=== PATIENT | female | born 1950 | race Caucasian/White ===

== ENCOUNTER → 2019-10-27 | Outpatient (CLI) | payer MEDICARE, OTHER ==
--- NOTE | 2019-10-27 15:53 | US ---
EXAMINATION TYPE: US pelvis complete transvag DATE OF EXAM: 10/27/2019 COMPARISON: NONE CLINICAL HISTORY: 68-year-old female R10.2 Pelvic Pain. Pelvic pain during intercourse x 1-2 months TECHNIQUE: Transabdominal sonographic images of the pelvis were acquired. Transvaginal scanning was medically necessary to better assess the anatomy. Date of LMP: post menopausal FINDINGS: EXAM MEASUREMENTS: Uterus: 9.1 x 2.7 x 4.5 cm Endometrial Stripe: 0.4 cm Right Ovary: non-visualized Left Ovary: 2.1 x 1.8 x 1.6 cm 1. Uterus: Nabothian cysts 2. Endometrium: Small cystic change along the endometrium. 3. Right Ovary: Obscured by overlying bowel gas 4. Left Ovary: A 6 mm cyst within a questionable clinical significance. 5. Bilateral Adnexa: wnl 6. Posterior cul-de-sac: wnl Heating Repair Technician notes: Small amount of fluid seen within the endocervical canal. IMPRESSION: 1. Small cysts along the endometrium could reflect endometrial hyperplasia. Overall endometrial thick ness is normal at 4 mm. Consider follow-up in 3 months to reassess. 2. Small amount of fluid within the endocervical canal. Consider assessment with physical exam.
== END | disposition home or self-care (01) ==
LOC: RADUSWWP 12:37
PROVIDERS: ATTEND Family Medicine
DX: N85.8 Other specified noninflammatory disorders of uterus (principal)
CPT/HCPCS: 76830; 76856

== ENCOUNTER → 2019-12-13 | Outpatient (CLI) | payer MEDICARE, OTHER ==
--- NOTE | 2019-12-16 11:48 | MM ---
Reason for exam: screening (asymptomatic). Last mammogram was performed 2 years and 8 months ago. History: Patient is postmenopausal and had first child at age 36. Physical Findings: A clinical breast exam by your physician is recommended on an annual basis and results should be correlated with mammographic findings. MG 3D Screening Mammo W/Cad Bilateral CC and MLO view(s) were taken. Prior study comparison: April 21, 2017, mammogram, performed at [facility]. September 20, 2010, mammogram, performed at [facility]. The breast tissue is heterogeneously dense. This may lower the sensitivity of mammography. No significant changes when compared with prior studies. ASSESSMENT: Benign, BI-RAD 2 RECOMMENDATION: Routine screening mammogram of both breasts in 1 year.
== END | disposition home or self-care (01) ==
LOC: RADMAMWWP 10:52
PROVIDERS: ATTEND Obstetrics & Gynecology
DX: Z12.31 Encounter for screening mammogram for malignant neoplasm of breast (principal)
CPT/HCPCS: 77063; 77067

== ENCOUNTER → 2019-12-16 | Outpatient (CLI) | payer MEDICARE, OTHER ==
--- NOTE | 2019-12-16 13:46 | BD ---
EXAMINATION TYPE: Axial Bone Density DATE OF EXAM: 12/16/2019 COMPARISON: NONE CLINICAL HISTORY: 69 YR OLD FEMALE .......ICD-10 CODE: M89.9 BONE DEN DISORDER, Z13.820 OSTEOPOROSI S SCREENING Height: 60 Weight: 170 FRAX RISK QUESTIONS: Glucocorticoids (More than 3mos): YES (Ex: prednisone, prednisolone, methylprednisolone, dexamethasone, and hydrocortisone). RISK FACTORS HISTORY OF: History of Wrist Fracture: LT WRIST, LT ELBOW AND RT FOOT FXs AN ADULT Family History of Osteoporosis: YES, MOTHER...NO HIP FX Diet low in dairy products/other sources of calcium: YES Postmenopausal woman: YES, AT AGE 54 Hyperparathyroidism: NO Adrenal Insufficiency: NO MEDICATIONS: Prednisone or other steroids: YES, FOR ASTHMA AND BRONCHITIS Additional Medications: NOTHING TO NOTE HERE Additional History: ASTHMA EXAM MEASUREMENTS: Bone mineral densitometry was performed using the [employer] System. Bone mineral density as measured about the Lumbar spine is: ----- L1-L4(G/cm2): 1.020 T Score Values are as follows: ----- L1: -2.2 ----- L2: -1.8 ----- L3: -0.7 ----- L4: -0.9 ----- L1-L4: -1.3 Bone mineral density FIRST BONE DENSITY STUDY AT [facility] Bone mineral density about the R hip (g/cm2): 0.895 Bone mineral density about the L hip (g/cm2): 0.873 T Score values are as follows: -----R Neck: -1.5 -----L Neck: -1.6 -----R Total: -0.9 -----L Total: -1.1 Bone mineral density FIRST BONE DENSITY STUDY AT [facility] FRAX%s: THERE IS A 23.3% CHANCE FOR A MAJOR OSTEOPOROTIC FX AND A 3.5% FOR HIP......PROBABILITY FOR FX IN 10 YR TIME IMPRESSION: Osteopenia (T Score between -2.5 and -1). There is slightly increased risk of fracture and the patient may be considered for treatment. Re-Screen 2-5 years. NOTE: T-SCORE=SD OF THE YOUNG ADULT MEAN.
== END | disposition home or self-care (01) ==
LOC: RADBDWWP 09:21
PROVIDERS: ATTEND Obstetrics & Gynecology
DX: Z13.820 Encounter for screening for osteoporosis (principal); M85.80 Other specified disorders of bone density and structure, unspecified site; Z78.0 Asymptomatic menopausal state
CPT/HCPCS: 77080

== ENCOUNTER → 2020-01-19 | Outpatient (CLI) | payer MEDICARE, OTHER ==
[2020-01-19 08:46] LABS: Basophils % (A) 1 %; Eosinophils # (A) 0.1 k/uL (0-0.7); Eosinophils % (A) 3 %; HCT 46.3 % (34.0-46.0); HGB 15.6 gm/dL (11.4-16.0); Lymphocytes # (A) 1.6 k/uL (1.0-4.8); Lymphocytes % (A) 36 %; MCH 32.5 pg (25.0-35.0); MCHC 33.6 g/dL (31.0-37.0); MCV 96.7 fL (80.0-100.0); Mean Platelet Volume 7.2; Monocytes # (A) 0.3 k/uL (0-1.0); Monocytes % (A) 7 %; Neutrophils # (A) 2.3 k/uL (1.3-7.7); Neutrophils % (A) 52 %; Platelet Count 189 k/uL (150-450); RBC 4.79 m/uL (3.80-5.40); RDW 12.6 % (11.5-15.5); WBC 4.4 k/uL (3.8-10.6)
[2020-01-19 08:53] LABS: African American GFR (CKD) >90 (>60 ml/min/1.73 sqM); Anion Gap 2 mmol/L; Blood Urea Nitrogen 11 mg/dL (7-17); Calcium 8.9 mg/dL (8.4-10.2); Carbon Dioxide 30 mmol/L (22-30); Chloride 107 mmol/L (98-107); Glucose 96 mg/dL (74-99); Non-African American GFR(CKD) 78 (>60 ml/min/1.73 sqM); Potassium 4.5 mmol/L (3.5-5.1); Sodium 139 mmol/L (137-145)
== END | disposition home or self-care (01) ==
LOC: LABPAT 07:33
PROVIDERS: ATTEND Obstetrics & Gynecology
DX: Z01.818 Encounter for other preprocedural examination (principal)
CPT/HCPCS: 36415; 80048; 85025

== ENCOUNTER 2020-01-28 05:41 | Observation (INO) | payer MEDICARE, OTHER ==
[2020-01-25 14:15] VITALS: BMI 32.3
--- NOTE | 2020-01-27 17:10 | P.HPOB ---
History of Present Illness H&P Date: 01/27/20 Chief Complaint: Uterine prolapse with rectocele This is a 69 y.o. female, 4, para 2, who presents for total vaginal hysterectomy with posterior vaginal colporrhaphy, possible total abdominal hysterectomy with bilateral salpingooophorectomy due to uterine prolapse with cystocele and dyspareunia. Pelvic ultrasound showed uterus 9.1 x 2.7 x 4.5 cm with endometrium 0.4 cm. Her right ovary was not visualized and her left ovary showed a 6 mm cyst. She complains of vaginal mass, perineal pressure, back pain, dyspareunia, and vaginal irritation. She rarely has urinary incontinence and denies pelvic pain, urinary tract infections, or constipation. OB Hx: . History of 1 vaginal delivery and 1 . History of 1 ectopic and 1 miscarriage. 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 Works part-time at [employer], office work. Review of Systems Constitutional: Reports fatigue, Denies chills, Denies fever Eyes: denies blurred vision, denies pain Ears, nose, mouth and throat: Denies sore throat Cardiovascular: Denies chest pain, Denies shortness of breath Respiratory: Denies cough Gastrointestinal: Denies abdominal pain, Denies diarrhea, Denies nausea, Denies vomiting Genitourinary: Reports dyspareunia, Reports prolapse symptoms, Reports stress incontinence (rare), Denies dysuria, Denies hematuria Musculoskeletal: Reports low back pain, Reports myalgias Integumentary: Denies pruritus, Denies rash Neurological: Reports headaches, Denies numbness, Denies weakness Psychiatric: Denies anxiety, Denies depression Past Medical History Additional Past Medical History / Comment(s): rectocele History of Any Multi-Drug Resistant Organisms: None Reported Past Surgical History: Section Additional Past Surgical History / Comment(s): laproscopy Past Anesthesia/Blood Transfusion Reactions: No Reported Reaction Past Psychological History: No Psychological Hx Reported Smoking Status: Never smoker Past Alcohol Use History: Occasional Past Drug Use History: None Reported - Past Family History Mother Family Medical History: Diabetes Mellitus Medications and Allergies Home Medications Medication Instructions Recorded Confirmed Type Calcium Carbonate/Vitamin D3 1 each PO DAILY 01/25/20 01/28/20 History [Calcium 500 mg-Vit D3 5 Mcg (200 Unit)] Allergies Allergy/AdvReac Type Severity Reaction Status Date / Time No Known Allergies Allergy Verified 01/28/20 06:22 Exam Osteopathic Statement: *. No significant issues noted on an osteopathic structural exam other than those noted in the History and Physical/Consult. HEENT: within normal limits Heart: regular rate and rhythm Lungs: clear to auscultation bilaterally Abdomen: soft, non-tender Pelvic: uterus anteverted, non-tender with 1st degree prolapse and 3rd degree rectocele. No adnexal masses or tenderness. Extremities: neg. Cruz's. Assessment and Plan (1) Rectocele with incomplete uterovaginal prolapse Current Visit: No Status: Acute Code(s): N81.2 - INCOMPLETE UTEROVAGINAL PROLAPSE SNOMED Code(s): 063169060 Plan: Proceed with total vaginal hysterectomy with posterior vaginal colporrhaphy, possible total abdominal hysterectomy with bilateral salpingooophorectomy. I have discussed the risks, benefits, and alternative therapies for the above- mentioned procedure and for both sedation/anesthesia as well as necessary blood products administration, if indicated, as they pertain to this patient. The patient has indicated her understanding and acceptance of the risks and procedures discussed.
[2020-01-28] MEDS ORDERED: HYDROmorphone 0.5 MG/0.5 ML SYRINGE IVP PRN (05:59)
[2020-01-28] MEDS ORDERED: MIDAZOLAM 2 MG/2 ML VIAL IV PRN (05:59)
[2020-01-28] MEDS ORDERED: LIDOCAINE 1% (10MG/ML) FOR IV START INTRADERMA ONE (06:30)
[2020-01-28] MEDS: LACTATED RINGERS 1,000 ML IV SCH (06:30)
[2020-01-28] MEDS: DEXAMETHASONE SOD PHOSPHATE 4 MG/ML 1 ML VIAL IV ONE ×2 (06:50→10:49)
[2020-01-28] MEDS: ONDANSETRON 4 MG/2 ML VIAL IVP ONE ×2 (06:51→10:47)
[2020-01-28] MEDS ORDERED: MORPHINE SULFATE (PF) 0.3 MG/0.3 ML SYR ONE (07:37)
[2020-01-28] MEDS ORDERED: NEOSTIGMINE 1 MG/ML 10 ML VIAL ONE (07:37)
[2020-01-28] MEDS ORDERED: fentaNYL (PF) 50 MCG/ML 2 ML AMP ONE (07:37)
[2020-01-28] MEDS ORDERED: PROPOFOL 10 MG/ML 20 ML VIAL IV ONE (07:37)
[2020-01-28] MEDS ORDERED: ROCURONIUM 10 MG/ML (10 ML VIAL) IV ONE (07:37)
[2020-01-28] MEDS ORDERED: GLYCOPYRROLATE 0.2 MG/ML 2 ML VIAL ONE (07:37)
[2020-01-28] MEDS ORDERED: SUCCINYLCHOLINE CHLORIDE 100 MG/5 ML SYR IV ONE (07:37)
[2020-01-28] MEDS ORDERED: MIDAZOLAM 2 MG/2 ML VIAL ONE (07:37)
[2020-01-28] MEDS ORDERED: LIDOCAINE 1% INJ 10MG/ML (20 ML MDV) ONE (07:37)
[2020-01-28] MEDS ORDERED: EPINEPHrine 1 MG/ML 1 ML AMP IM ONE (08:05)
[2020-01-28] MEDS ORDERED: LACTATED RINGERS 1,000 ML IV ONE (08:47)
--- NOTE | 2020-01-28 09:16 | P.OP ---
Date of Procedure: 01/28/20 Preoperative Diagnosis: Uterine prolapse with rectocele Postoperative Diagnosis: Same Procedure(s) Performed: Total vaginal hysterectomy with posterior vaginal colporrhaphy Anesthesia: GETA, spinal (Duramorph) Surgeon: Carolina Fu Floor Sander #1: Angléica Cuellar Estimated Blood Loss (ml): 25 Pathology: other (Uterus with cervix, vaginal mucosa) Condition: stable Disposition: floor Indications for Procedure: This is a 69 y.o. female, 4, para 2, who presents for total vaginal hysterectomy with posterior vaginal colporrhaphy, possible total abdominal hysterectomy with bilateral salpingooophorectomy due to uterine prolapse with cystocele and dyspareunia. Pelvic ultrasound showed uterus 9.1 x 2.7 x 4.5 cm with endometrium 0.4 cm. Her right ovary was not visualized and her left ovary showed a 6 mm cyst. She complains of vaginal mass, perineal pressure, back pain, dyspareunia, and vaginal irritation. She rarely has urinary incontinence and denies pelvic pain, urinary tract infections, or constipation. Operative Findings: Uterus had grade 1 prolapse. Grade 2-3 rectocele is noted. Vaginal atrophy is noted. Description of Procedure: The patient is taken the operating room where she is placed in the dorsal lithotomy position. She is prepped and draped in the normal sterile fashion. Next a weighted speculum was placed in the patient's vagina and a right angle retractor was used to visualize the cervix. The anterior lip of the cervix is grasped with a single-tooth tenaculum. Next the cervix was circumferentially injected with one amp of epinephrine to 150 mL of normal saline. Next the cervix was circumscribed with a scalpel. The vaginal mucosa was pushed away from the cervix with a sponge. Next the uterosacral ligaments are clamped on either side with a Vaughn clamp, cut with Jacobs scissors, and then sutured with 0 Vicryl suture in a Vaughn transfixion stitch and then held on either side with a straight hemostat. Next the posterior peritoneal reflection was identified and entered sharply with Jacobs scissors. The edges of the vaginal mucosa was then tagged with 0 Vicryl suture and held with a curved hemostat for identification. Next a longbilled weighted speculum was placed through the posterior peritoneal reflection. Next the cardinal ligaments were clamped on either side with Vaughn clamps, cut with Jacobs scissors, and then sutured with 0 Vicryl suture in Vaughn transfixion stitches and cut. Sharp dissection along the lower uterine segment is used to sharply dissect the bladder away from the uterus. A right angle bladder retractor is used to retract the bladder. The uterine arteries are clamped on either side with Vaughn clamps, cut with Jacobs scissors, and then sutured with 0 Vicryl suture in Vaughn transfixion stitches. The round ligament is also clamped on either side with a Vaughn clamp, cut with Jacobs scissors, and sutured with 0 Vicryl suture in Vaughn transfixion stitches. Next the uterine ovarian ligament and tube were clamped on either side with a Vaughn clamp, cut with Jacobs scissors, and then sutured with 0 Vicryl suture in a [id number] stitch, flashed, and then free tied with another suture of 0 Vicryl suture. These pedicles were held with a straight Eric for identification. The uterus is removed from the field. Good hemostasis is noted. Next the peritoneum is closed with 0 Vicryl suture in a pursestring fashion incorporating all the held ligaments. Again neither ovary was visualized prior to closing the vaginal cuff area. The previously held uterosacral ligaments are tied together in the midline. The vaginal cuff was then sutured with 0 Vicryl suture in a running locked fashion and a vertical fashion. Excellent hemostasis is noted. Next attention was turned to the posterior repair. The edges of the vaginal mucosa at the introitus were grasped at the 4 and 8 o'clock position with Allis clamps. Next injection of the same epinephrine solution is injected upwards underneath the vaginal mucosa upwards towards the vaginal cuff. A triangle piece of tissue is removed from the perineum with sharp dissection then then Metzenbaum scissors are used to dissect underneath the vaginal mucosa upwards towards the apex. The edges of the vaginal mucosa are held with Allis clamps. Next the rectocele was dissected away from the vaginal mucosa with sharp and blunt dissection. The rectocele was then reduced with 0 Vicryl suture in interrupted [id number] stitches. The edges of the vaginal mucosa are then trimmed. Next the vaginal mucosa is sutured with 0 Vicryl suture in a running locked fashion up to the introitus and then brought underneath the mucosa and whipstitched along the connective tissue underneath up to the apex on the perineum. And then the stitches brought in a subcuticular fashion up to the introitus and tied. The Al catheter is inserted and clear urine is noted. Next the vagina is packed with one-inch iodoform gauze with bacitracin ointment. All sponge and needle counts are correct and the patient is then taken to recovery room in stable condition. She was noted to have significant vaginal atrophy.
[2020-01-28] MEDS ORDERED: METOCLOPRAMIDE 5 MG/ML 2 ML VIAL IVP PRN (09:51)
[2020-01-28] MEDS ORDERED: SIMETHICONE 80 MG CHEWABLE PO PRN (09:51)
[2020-01-28] MEDS ORDERED: diphenhydrAMINE 50 MG/ML 1 ML VIAL IVP PRN (09:51)
[2020-01-28] MEDS ORDERED: ZOLPIDEM 5 MG TAB PO PRN (09:51)
[2020-01-28] MEDS: ONDANSETRON 4 MG/2 ML VIAL IVP PRN ×2 (09:54→17:21)
[2020-01-28] MEDS: KETOROLAC 15 MG/ML 1 ML VIAL IVP PRN ×2 (09:54→16:11)
[2020-01-28] MEDS: SENNOSIDES-DOCUSATE SODIUM 1 EACH TAB PO SCH (11:41)
[2020-01-29] MEDS: LACTATED RINGERS 1,000 ML IV SCH (01:35)
[2020-01-29] MEDS: KETOROLAC 15 MG/ML 1 ML VIAL IVP PRN (01:39)
[2020-01-29] MEDS: SENNOSIDES-DOCUSATE SODIUM 1 EACH TAB PO SCH ×2 (03:56→08:05)
[2020-01-29 03:57] VITALS: RESP 16
[2020-01-29 06:31] LABS: Basophils % (A) 0 %; Eosinophils % (A) 0 %; HCT 39.9 % (34.0-46.0); HGB 13.6 gm/dL (11.4-16.0); Lymphocytes # (A) 1.7 k/uL (1.0-4.8); Lymphocytes % (A) 16 %; MCH 32.6 pg (25.0-35.0); MCHC 34.2 g/dL (31.0-37.0); MCV 95.2 fL (80.0-100.0); Mean Platelet Volume 7.3; Monocytes # (A) 0.6 k/uL (0-1.0); Monocytes % (A) 6 %; Neutrophils # (A) 8.2 k/uL (1.3-7.7); Neutrophils % (A) 77 %; Platelet Count 169 k/uL (150-450); RBC 4.19 m/uL (3.80-5.40); RDW 12.5 % (11.5-15.5); WBC 10.7 k/uL (3.8-10.6)
--- NOTE | 2020-01-29 11:39 | P.PN ---
Subjective Progress Note Date: 01/29/20 Principal diagnosis: Status post total vaginal hysterectomy with rectocele repair postoperative day #1 This is a 69-year-old female who underwent a total vaginal hysterectomy with rectocele repair yesterday. Postoperatively she did have some nausea and vomiting. Her pain is fairly well controlled now. Her catheter has been out for almost 6 hours and she still has not urinated very much. She had a little bit of flatus but no bowel movement yet. Bleeding has been minimal. Objective - Vital Signs Vital signs: Vital Signs Temp 98.1 F 01/29/20 07:58 Pulse 89 01/29/20 07:58 Resp 16 01/29/20 07:58 BP 124/61 01/29/20 07:58 Pulse Ox 95 01/29/20 03:56 Intake & Output 01/28/20 01/29/20 01/29/20 18:59 06:59 18:59 Intake Total 850 535 Output Total 425 1100 Balance 425 -565 Weight 77.9 kg Intake: IV 850 Intake, IV Titration 535 Amount Lactated Ringers 1,000 ml 535 @ 20 mls/hr IV .Q24H COUNT INCLUDES THE [facility] Rx#:[id number] Output: Urine 400 1100 Estimated Blood Loss 25 - Gastrointestinal General gastrointestinal: Present: normal bowel sounds - Genitourinary Genitourinary Comment(s): Karol-pad shows scant serosanguineous discharge - Labs CBC & Chem 7: 01/29/20 05:55 Labs: Abnormal Lab Results - Last 24 Hours (Table) 01/29/20 Range/Units 05:55 WBC 10.7 H (3.8-10.6) k/uL Neutrophils # 8.2 H (1.3-7.7) k/uL Assessment and Plan Assessment: Status post total vaginal hysterectomy with posterior repair postoperative day #1 (1) Rectocele with incomplete uterovaginal prolapse Current Visit: No Status: Acute Code(s): N81.2 - INCOMPLETE UTEROVAGINAL PROLAPSE SNOMED Code(s): 787109702 Plan: Continue with postoperative care today. Patient advised that we will need to straight cath if she is unable to urinate after 6 hours. She is encouraged to ambulate and drink more fluids.
--- NOTE | 2020-01-29 12:39 | P.PN ---
Progress Note - Text Progress Note Date: 01/29/20 Postoperative day 1 status post total vaginal hysterectomy under general endot narayan anesthesia, and intrathecal morphine given for postoperative analgesia, patient doing well, there is no anesthesia related complications, Patient had no headache, vital signs stable , Assessment and plan= postop day 1 , doing well there is no anesthesia related complication.
[2020-01-29] MEDS: IBUPROFEN 600 MG TAB PO PRN (18:28)
[2020-01-30] MEDS: SENNOSIDES-DOCUSATE SODIUM 1 EACH TAB PO SCH ×2 (01:56→07:48)
[2020-01-30 07:37] VITALS: BP 144/73; PULSE 79; TEMP 98.3
[2020-01-30] MEDS: IBUPROFEN 600 MG TAB PO PRN (08:45)
--- NOTE | 2020-01-30 12:15 | P.DS ---
Providers Date of admission: 01/29/20 08:21 Expected date of discharge: 01/30/20 Attending physician: Carolina Fu Primary care physician: Irineo Johnson - Discharge Diagnosis(es) (1) Rectocele with incomplete uterovaginal prolapse Current Visit: No Status: Acute Hospital Course: 79-year-old female who underwent a total vaginal hysterectomy with rectocele repair on 01/28/2020. Postoperatively she has done fairly well. She did have some nausea and vomiting the first postoperative day but has been doing better now. She is passing flatus but no bowel movement yet. She is urinating without difficulty. Her pain is been fairly well-controlled with ibuprofen. Bleeding has been minimal. Vital signs are stable. Abdomen is soft with positive bowel sounds 4. Karol-pad shows scant serosanguineous discharge. Extremities show negative Homans. Impression is status post total vaginal hysterectomy with posterior vaginal colporrhaphy postoperative day #2. Plan is to discharge home today. Routine postoperative instructions are given. She is advised to follow up in the office in approximately 1 week for a postoperative check and she is advised to call the office if she has any further questions or concerns prior to her appointment time. She is instructed no heavy lifting, bending, stooping, pulling or pushing. No intercourse. May shower, but no tub baths. Procedures: Total vaginal hysterectomy with posterior vaginal colporrhaphy on 01/28/2020 Patient Condition at Discharge: Stable Plan - Discharge Summary Discharge Rx Participant: Yes New Discharge Prescriptions: New Ibuprofen [Motrin] 600 mg PO Q6HR PRN #60 tab PRN Reason: Mild Discomfort No Action Calcium Carbonate/Vitamin D3 [Calcium 500 mg-Vit D3 5 Mcg (200 Unit)] 1 each PO DAILY Discharge Medication List Calcium Carbonate/Vitamin D3 [Calcium 500 mg-Vit D3 5 Mcg (200 Unit)] 1 each PO DAILY 01/25/20 [History] Ibuprofen [Motrin] 600 mg PO Q6HR PRN #60 tab 01/30/20 [Rx] Follow up Appointment(s)/Referral(s): Carolina Fu DO [Doctor of Osteopathic Medicine] - 02/04/20 (Call office to schedule appointment) Activity/Diet/Wound Care/Special Instructions: Diet as tolerated. May shower, but no tub baths. No intercourse. Light activity with no lifting, bending, stooping, pushing, or pulling. Discharge Disposition: HOME SELF-CARE
== END 2020-01-30 13:04 | disposition home or self-care (01) ==
LOC: OR 05:41 → EDSTATUS 07:30 → 4FBP 09:13 → OR 01-29 08:21
PROVIDERS: ADMIT Obstetrics & Gynecology; ATTEND Obstetrics & Gynecology
DX: N81.2 Incomplete uterovaginal prolapse (principal); N81.6 Rectocele; N84.0 Polyp of corpus uteri; N95.2 Postmenopausal atrophic vaginitis; R11.2 Nausea with vomiting, unspecified; N94.10 Unspecified dyspareunia; N83.202 Unspecified ovarian cyst, left side; Z87.59 Personal history of other complications of pregnancy, childbirth and the puerperium; Z83.3 Family history of diabetes mellitus
CPT/HCPCS: 85025; 88307; 58260; 57250; G0378 ×2; J2250; J0171; J1100; J2710; J2765; J0690; J2405; J2001; J2274; J3010; J1885 ×2; J0330; J2704; 86850; 86900; 86901

== ENCOUNTER 2020-04-12 11:15 | Day surgery (SDC) | payer MEDICARE, OTHER ==
[2020-04-10 09:41] VITALS: BMI 31.7
--- NOTE | 2020-04-11 21:33 | P.HPOB ---
History of Present Illness H&P Date: 04/11/20 Chief Complaint: Dyspareunia, vaginal adhesion This is a 69 y.o. female, 4, para 2, who underwent a total vaginal hysterectomy with posterior colporrhaphy on 01/28/2020. She has been using estradiol cream since her 6 week post operative check. She complains of pain on insertion during intercourse and feels like she's going to rip. She presents for exam under anesthesia with vaginal adhesion release. OB Hx: . History of 1 vaginal delivery, 1 section, 1 ectopic, and 1 miscarriage. Information Technology Data Analyst Hx: No history of STDs. Social Hx: . Works part-time, office work. Review of Systems Constitutional: Denies chills, Denies fever Eyes: denies blurred vision, denies pain Ears, nose, mouth and throat: Denies sore throat Cardiovascular: Denies chest pain, Denies shortness of breath Respiratory: Denies cough Gastrointestinal: Denies abdominal pain, Denies diarrhea, Denies nausea, Denies vomiting Genitourinary: Reports dyspareunia Musculoskeletal: Reports low back pain, Reports myalgias Integumentary: Denies pruritus, Denies rash Neurological: Reports headaches, Denies numbness, Denies weakness Psychiatric: Denies anxiety, Denies depression Past Medical History Additional Past Medical History / Comment(s): VAGINAL ADHESIONS POST PROLAPSE REPAIR 01/29/20 History of Any Multi-Drug Resistant Organisms: None Reported Past Surgical History: Section Additional Past Surgical History / Comment(s): laproscopy. RECTOCELE AND VAGINAL PROLAPSE REPAIR 01/29/20 Past Anesthesia/Blood Transfusion Reactions: Postoperative Nausea & Vomiting (PONV) Past Psychological History: No Psychological Hx Reported Smoking Status: Never smoker Past Alcohol Use History: Occasional Past Drug Use History: None Reported - Past Family History Mother Family Medical History: Diabetes Mellitus Medications and Allergies Home Medications Medication Instructions Recorded Confirmed Type Calcium Carbonate/Vitamin D3 1 each PO DAILY 01/25/20 04/12/20 History [Calcium 500 mg-Vit D3 5 Mcg (200 Unit)] Estradiol Cream [Estrace Cream 1 gm VAGINAL Q3D 04/11/20 04/12/20 History 0.01%] Allergies Allergy/AdvReac Type Severity Reaction Status Date / Time No Known Allergies Allergy Verified 04/10/20 09:35 Exam Osteopathic Statement: *. No significant issues noted on an osteopathic structural exam other than those noted in the History and Physical/Consult. HEENT: within normal limits Heart: regular rate and rhythm Lungs: clear to auscultation bilaterally Abdomen: soft, non-tender Pelvic: Perineum: small spot on perineum with ridge of tissue that is agglutinated and tender to touch. Vaginal cuff normal/non-tender. No adnexal masses or tenderness. Extremities: neg. Cruz's. Assessment and Plan (1) Vaginal adhesions, postprocedural Current Visit: No Status: Acute Code(s): N99.2 - POSTPROCEDURAL ADHESIONS OF VAGINA SNOMED Code(s): 77464824 (2) Dyspareunia in female Current Visit: No Status: Acute Code(s): N94.10 - UNSPECIFIED DYSPAREUNIA SNOMED Code(s): 99725383 Plan: Proceed with exam under anesthesia with vaginal adhesion release. I have discussed the risks, benefits, and alternative therapies for the above- mentioned procedure and for both sedation/anesthesia as well as necessary blood products administration, if indicated, as they pertain to this patient. The patient has indicated her understanding and acceptance of the risks and procedures discussed.
[~2020-04-12 11:15] MED LIST: DEXAMETHASONE SOD PHOSPHATE 4 MG/ML 1 ML VIAL IV ONE; HYDROmorphone 0.5 MG/0.5 ML SYRINGE IVP PRN; LACTATED RINGERS 1,000 ML IV SCH; LIDOCAINE 1% (10MG/ML) FOR IV START INTRADERMA PRN; Pre Op ABX Message 1 EACH MISC MISCELLANE ONE
[2020-04-12 11:40] VITALS: RESP 16
[2020-04-12] MEDS ORDERED: fentaNYL (PF) 50 MCG/ML 2 ML AMP ONE (12:56)
[2020-04-12] MEDS ORDERED: LIDOCAINE 1% INJ 10MG/ML (20 ML MDV) ONE (12:56)
[2020-04-12] MEDS ORDERED: MIDAZOLAM 2 MG/2 ML VIAL ONE (12:56)
[2020-04-12] MEDS ORDERED: PROPOFOL 10 MG/ML 20 ML VIAL IV ONE (12:56)
[2020-04-12] MEDS ORDERED: BUPIVACAINE-EPI 0.5%-1:200,000 10 ML VIAL SQ ONE ×2 (13:13)
--- NOTE | 2020-04-12 13:27 | P.OP ---
Date of Procedure: 04/12/20 Preoperative Diagnosis: Vaginal adhesion Dyspareunia Postoperative Diagnosis: Same Procedure(s) Performed: Examination under anesthesia Vaginal adhesion release Anesthesia: other (LMA general) Surgeon: Carolina Fu Estimated Blood Loss (ml): 5 Pathology: none sent Condition: stable Disposition: same day Indications for Procedure: This is a 69 y.o. female, 4, para 2, who underwent a total vaginal hysterectomy with posterior colporrhaphy on 01/28/2020. She has been using estradiol cream since her 6 week post operative check. She complains of pain on insertion during intercourse and feels like she's going to rip. She presents for exam under anesthesia with vaginal adhesion release. Operative Findings: Small adhesion is noted on the perineum just at the introitus. Otherwise exam under anesthesia revealed minimal rectocele and able to insert [address] up to the vaginal cuff. Description of Procedure: The patient is taken to the operating room where she is placed in the dorsal lithotomy position. She is prepped and draped in the normal sterile fashion. Her bladder is drained with a catheter. Examination is performed under anesthesia. There is noted to be a small fold of tissue on the perineum just at the introitus with a small ridge of tissue that is very thin. 2 fingers are able to pass through the vagina all the way up to the cuff without difficulty. There is minimal rectocele noted. A scalpel was used to incise a vertical incision on the perineal adhesion. Next 3-0 Vicryl suture is used in a running locked fashion going from left to right to sew the incision open. Next the skin edges are closed with 3-0 Vicryl suture in a running locked fashion. Good hemostasis is noted and no ridge of tissue is now noted. Good hemostasis is noted. Estimated blood loss is approximately 5 mL's. All sponge and needle counts are correct. The incision area is also anesthetized with half percent lidocaine with epinephrine. Approximately 3 mL are used.
[2020-04-12 13:34] VITALS: TEMP 97.4
[2020-04-12 14:28] VITALS: BP 123/76; PULSE 80
== END 2020-04-12 14:41 | disposition home or self-care (01) ==
LOC: OR 11:15
PROVIDERS: ATTEND Obstetrics & Gynecology
DX: N99.2 Postprocedural adhesions of vagina (principal); N94.10 Unspecified dyspareunia; N81.6 Rectocele; Z98.891 History of uterine scar from previous surgery; Z88.0 Allergy status to penicillin; Z99.2 Dependence on renal dialysis; Z83.3 Family history of diabetes mellitus
CPT/HCPCS: 56441; 57410; J2250; J1100; J2001; J3010; J2704

== ENCOUNTER → 2020-12-27 | Outpatient (CLI) | payer MEDICARE, OTHER ==
--- NOTE | 2020-12-29 14:04 | MM ---
Reason for exam: screening (asymptomatic). Last mammogram was performed 1 year ago. History: Patient is postmenopausal and had first child at age 36. Physical Findings: A clinical breast exam by your physician is recommended on an annual basis and results should be correlated with mammographic findings. MG 3D Screening Mammo W/Cad Bilateral CC and MLO view(s) were taken. Prior study comparison: December 13, 2019, bilateral MG 3d screening mammo w/cad. April 21, 2017, mammogram, performed at [facility]. The breast tissue is heterogeneously dense. This may lower the sensitivity of mammography. There is chronic nodularity in the right breast. No significant changes when compared with prior studies. ASSESSMENT: Benign, BI-RAD 2 RECOMMENDATION: Routine screening mammogram of both breasts in 1 year.
== END | disposition home or self-care (01) ==
LOC: RADMAMWWP 15:08
PROVIDERS: ATTEND Obstetrics & Gynecology
DX: Z12.31 Encounter for screening mammogram for malignant neoplasm of breast (principal); Z78.0 Asymptomatic menopausal state
CPT/HCPCS: 77063; 77067

== ENCOUNTER 2021-09-05 12:25 | Emergency (ER) | payer MEDICARE, OTHER ==
[2021-09-05 12:46] VITALS: TEMP 97.6
--- NOTE | 2021-09-05 13:40 | ED ---
General Adult HPI - General Chief complaint: Urogenital Stated complaint: kidney stone referred by [facility] Time Seen by Provider: 09/05/21 13:07 Source: patient, family, RN notes reviewed, old records reviewed Mode of arrival: ambulatory Limitations: no limitations - History of Present Illness Initial comments: This is a 70-year-old female presents emergency department stating that she went to [facility] because of sudden onset of left flank pain. Patient was diagnosed with a kidney stone with some mild hydro-. Patient states she was given Toradol Zofran and fentanyl and was feeling considerably better. Patient had her drive her up here because they were told urology would be involved in her case. Patient denies any fever chills per patient denies any dysuria or urinary frequency. Patient states she does have a little back pain on the left side. Patient denies any other symptoms at this time - Related Data Home Medications Medication Instructions Recorded Confirmed Calcium Carbonate/Vitamin D3 1 each PO DAILY 01/25/20 04/12/20 [Calcium 500 mg-Vit D3 5 Mcg (200 Unit)] Estradiol Cream [Estrace Cream 1 gm VAGINAL Q3D 04/11/20 04/12/20 0.01%] Previous Rx's Medication Instructions Recorded Ketorolac [Toradol] 10 mg PO Q6HR #15 tab 09/05/21 Tamsulosin [Flomax] 0.4 mg PO DAILY #10 cap 09/05/21 Allergies Allergy/AdvReac Type Severity Reaction Status Date / Time No Known Allergies Allergy Verified 09/05/21 12:46 Review of Systems ROS Statement: Those systems with pertinent positive or pertinent negative responses have been documented in the HPI. ROS Other: All systems not noted in ROS Statement are negative. Past Medical History Additional Past Medical History / Comment(s): VAGINAL ADHESIONS POST PROLAPSE REPAIR 01/29/20 History of Any Multi-Drug Resistant Organisms: None Reported Past Surgical History: Section, Hysterectomy Additional Past Surgical History / Comment(s): laproscopy. RECTOCELE AND VAGINAL PROLAPSE REPAIR 01/29/20 Past Anesthesia/Blood Transfusion Reactions: Postoperative Nausea & Vomiting (PONV) Past Psychological History: No Psychological Hx Reported Smoking Status: Never smoker Past Alcohol Use History: Occasional Past Drug Use History: None Reported - Past Family History Mother Family Medical History: Diabetes Mellitus General Exam - General Exam Comments Initial Comments: GENERAL: Patient is well-developed and well-nourished. Patient is nontoxic and well- hydrated and is in mild distress. ENT: Neck is soft and supple. No significant lymphadenopathy is noted. Oropharynx is clear. Moist mucous membranes. Neck has full range of motion without eliciting any pain. EYES: The sclera were anicteric and conjunctiva were pink and moist. Extraocular movements were intact and pupils were equal round and reactive to light. Eyelids were unremarkable. PULMONARY: Unlabored respirations. Good breath sounds bilaterally. No audible rales rhonchi or wheezing was noted. CARDIOVASCULAR: There is a regular rate and rhythm without any murmurs gallops or rubs. ABDOMEN Soft and nontender with normal bowel sounds. SKIN: Skin is clear with no lesions or rashes and otherwise unremarkable. NEUROLOGIC: Patient is alert and oriented x3. Cranial nerves II through XII are grossly intact. Motor and sensory are also intact. Normal speech, volume and content. Symmetrical smile. MUSCULOSKELETAL: Normal extremities with adequate strength and full range of motion. No lower extremity swelling or edema. No calf tenderness. Patient has mild left CVA tenderness LYMPHATICS: No significant lymphadenopathy is noted PSYCHIATRIC: Normal psychiatric evaluation. Limitations: no limitations Course Vital Signs 09/05/21 12:41 Temperature 97.6 F Pulse Rate 72 Respiratory 18 Rate Blood Pressure 135/69 O2 Sat by Pulse 95 Oximetry Medical Decision Making - Medical Decision Making Patient's urine did not show signs of infection. I will back into the room and patient stated she felt pretty good at this point time and thought she might want to try going home and taking some oral medications for her pain. Patient will contact urology as soon as possible. - Lab Data Lab Results 09/05/21 Range/Units 15:01 Urine Color Light Yellow Urine Appearance Clear (Clear) Urine pH 7.0 (5.0-8.0) Ur Specific [place] 1.011 (1.001-1.035) Urine Protein Negative (Negative) Urine Glucose (UA) Negative (Negative) Urine Ketones Negative (Negative) Urine Blood Moderate H (Negative) Urine Nitrite Negative (Negative) Urine Bilirubin Negative (Negative) Urine Urobilinogen <2.0 (<2.0) mg/dL Ur Leukocyte Esterase Large H (Negative) Urine RBC 8 H (0-5) /hpf Urine WBC 4 (0-5) /hpf Ur Squamous Epith Cells 2 (0-4) /hpf Urine Mucus Rare H (None) /hpf Disposition Clinical Impression: Kidney stone Disposition: HOME SELF-CARE Condition: Good Instructions (If sedation given, give patient instructions): Kidney Stones (ED) Prescriptions: Tamsulosin [Flomax] 0.4 mg PO DAILY #10 cap Ketorolac [Toradol] 10 mg PO Q6HR #15 tab Is patient prescribed a controlled substance at d/c from ED?: No Referrals: Irineo Johnson MD [Primary Care Provider] - 1-2 days Time of Disposition: 15:34
[2021-09-05 15:16] LABS: Appearance,Urine Clear (Clear); Bilirubin,Urine Negative (Negative); Blood,Urine Moderate (Negative); Color,Urine Light Yellow; Glucose,Urine (UA) Negative (Negative); Ketones,Urine Negative (Negative); Leukocyte Esterase,Urine Large (Negative); Mucus,Urine Rare /hpf; Nitrite,Urine Negative (Negative); Protein,Urine Negative (Negative); RBC,Urine 8 /hpf (0-5); Specific Gravity,Urine 1.011 (1.001-1.035); Squamous Epithelial Cell,Urine 2 /hpf (0-4); Urobilinogen,Urine <2.0 mg/dL (<2.0); WBC,Urine 4 /hpf (0-5)
[2021-09-05] MEDS ORDERED: ACET/COD 300 MG/30 MG STARTER PACK 6 TAB BTL PO STA (15:34)
[2021-09-05] MEDS ORDERED: ONDANSETRON 4 MG ODT STARTER PACK 2 TAB BTL PO STA (15:34)
[2021-09-05 15:52] VITALS: BP 112/74; PULSE 68; RESP 16
== END 2021-09-05 15:52 | disposition home or self-care (01) ==
LOC: EC 12:25
DX: N20.0 Calculus of kidney (principal)
CPT/HCPCS: 81001; 99284

== ENCOUNTER → 2021-09-11 | Outpatient (CLI) | payer MEDICARE, OTHER ==
--- NOTE | 2021-09-11 10:20 | XR ---
KUB HISTORY: Calculus of ureter Frontal KUB is submitted, no comparisons Overlying bowel gas may obscure detail, difficult to exclude ureteral calculus. There are multiple ca lcifications seen in the left hemipelvis. No evident bowel obstruction or pneumoperitoneum. Bone mine ralization is reduced. IMPRESSION: Indeterminate calcifications are present.
== END | disposition home or self-care (01) ==
LOC: RADXRMAIN 10:00
PROVIDERS: ATTEND Urology
DX: N20.1 Calculus of ureter (principal)
CPT/HCPCS: 74018

== ENCOUNTER 2021-09-13 07:26 | Day surgery (SDC) | payer MEDICARE, OTHER ==
--- NOTE | 2021-09-13 06:31 | P.GSHP ---
History of Present Illness H&P Date: 09/13/21 Chief Complaint: Left renal colic The patient is a 70-year-old white female with a history of urolithiasis 30 years ago. On 09/05/2021 she experienced acute onset of left flank pain radiating to the left lower abdomen. This is been associated with nausea and vomiting. Computed tomography scan showed mild to moderate left hydronephrosis due to 2 left proximal ureteral calculi measuring 4 x 6 mm. It is possible that this is a solitary dumbbell shaped calculus. She was also found to have a 3 mm left renal calculus. The calculi were not seen on a plain radiograph. She was offered the options of medical expulsion therapy versus ureteroscopic removal of the calculus. She has elected to undergo the latter. - Constitutional Constitutional: Denies chills, Denies fever - Gastrointestinal Gastrointestinal: Reports abdominal pain, Reports nausea, Reports vomiting - Genitourinary (Female) Genitourinary: Reports flank pain, Reports hematuria, Reports kidney stones, Reports urinary frequency, Denies dysuria Past Medical History Past Medical History: Hyperlipidemia Additional Past Medical History / Comment(s): VAGINAL ADHESIONS POST PROLAPSE REPAIR 01/29/20 elevated cholesterol no meds. mild edema to left ankle comes an goes. History of Any Multi-Drug Resistant Organisms: None Reported Past Surgical History: Section, Hysterectomy Additional Past Surgical History / Comment(s): laproscopy. RECTOCELE AND VAGINAL PROLAPSE REPAIR 01/29/20 Past Anesthesia/Blood Transfusion Reactions: Postoperative Nausea & Vomiting (PONV) Smoking Status: Never smoker - Past Family History Mother Family Medical History: Diabetes Mellitus Additional Family Medical History / Comment(s): type 2 Father Family Medical History: Hypertension Medications and Allergies Home Medications Medication Instructions Recorded Confirmed Type Calcium Carbonate/Vitamin D3 1 each PO DAILY 01/25/20 09/12/21 History [Calcium 500 mg-Vit D3 5 Mcg (200 Unit)] Ketorolac [Toradol] 10 mg PO Q6HR #15 tab 09/05/21 09/12/21 Rx Tamsulosin [Flomax] 0.4 mg PO DAILY #10 cap 09/05/21 09/12/21 Rx Unk Zinc 1 tab PO DAILY 09/12/21 09/12/21 History Allergies Allergy/AdvReac Type Severity Reaction Status Date / Time No Known Allergies Allergy Verified 09/12/21 08:25 Surgical - Exam - General well developed, well nourished, no distress - Neck no masses, trachea midline - Respiratory normal respiratory effort - Abdomen Abdomen: soft, tender (Mild left-sided tenderness), no guarding, no rigid, no rebound - Psychiatric oriented to time, oriented to person, oriented to place, speech is normal, memory intact Results - Imaging Abdominal x-ray: report reviewed, image reviewed CT scan - abdomen: report reviewed, image reviewed Assessment and Plan (1) Kidney stone Status: Acute Code(s): N20.0 - CALCULUS OF KIDNEY SNOMED Code(s): 58285130 (2) Calculus of ureter Status: Acute Code(s): N20.1 - CALCULUS OF URETER SNOMED Code(s): 82557371 Plan: Cystoscopy, left retrograde pyelogram, left ureteroscopy with Holmium laser lithotripsy and possible stone basketing, left ureteral stent insertion. The procedure has been reviewed in detail with the patient. She has been made aware of potential risks, which include anesthesia, bleeding, infection, and ureteral injury.
--- NOTE | 2021-09-13 07:43 | XR ---
EXAMINATION TYPE: XR KUB DATE OF EXAM: 09/13/2021 Comparison: 09/11/2021 Clinical History: 70-year-old female preop for left-sided kidney stone Findings: There is a 7 x 3 mm calcification left paramedian mid abdomen. Left-sided pelvic phleboliths. Mild-to -moderate stool in the right side of the abdomen. Nonobstructive bowel gas pattern. Impression: Suspect a 7 x 3 mm proximal to middle third left ureteral calculus.
[2021-09-13] MEDS ORDERED: LACTATED RINGERS 1,000 ML IV ONE ×2 (07:59→11:22)
[2021-09-13] MEDS ORDERED: ONDANSETRON 4 MG/2 ML VIAL ONE (08:18)
[2021-09-13] MEDS ORDERED: ONDANSETRON 4 MG/2 ML VIAL IVP ONE (08:21)
[2021-09-13] MEDS ORDERED: DEXAMETHASONE SOD PHOSPHATE 4 MG/ML 1 ML VIAL IVP ONE (08:21)
[2021-09-13] MEDS ORDERED: LIDOCAINE 2% INJ 20 MG/ML (2 ML VIAL) ONE (09:31)
[2021-09-13] MEDS ORDERED: MIDAZOLAM 2 MG/2 ML VIAL ONE (09:31)
[2021-09-13] MEDS ORDERED: fentaNYL (PF) 50 MCG/ML 2 ML AMP ONE (09:31)
[2021-09-13] MEDS ORDERED: PROPOFOL 10 MG/ML 20 ML VIAL IV ONE (09:31)
[2021-09-13] MEDS ORDERED: PHENYLEPHRINE-0.9% NACL SYG 1,000 MCG/10 ML SYRINGE ONE (09:31)
--- NOTE | 2021-09-13 10:57 | FL ---
EXAMINATION TYPE: FL guidance operating room DATE OF EXAM: 09/13/2021 HISTORY: Fluoroscopy time 37 seconds of fluoroscopy provided. IMPRESSION: 1. Fluoroscopy time.
[2021-09-13 11:09] VITALS: TEMP 97.5
--- NOTE | 2021-09-13 11:13 | P.OP ---
Date of Procedure: 09/13/21 Preoperative Diagnosis: Left ureteral calculus, left renal calculus Postoperative Diagnosis: Same Procedure(s) Performed: Cystoscopy, left ureteroscopy with Holmium laser lithotripsy and stone basketing, left ureteral stent insertion Anesthesia: SAKINAA Surgeon: Rom Mao Estimated Blood Loss (ml): 5 IV fluids (ml): 700 Pathology: other (Calculus fragments, sent for chemical analysis) Indications for Procedure: The patient is a 70-year-old white female with a history of urolithiasis 30 years ago. On 09/05/2021 she experienced acute onset of left flank pain radiating to the left lower abdomen. This is been associated with nausea and vomiting. Computed tomography scan showed mild to moderate left hydronephrosis due to 2 left proximal ureteral calculi measuring 4 x 6 mm. It is possible that this is a solitary dumbbell shaped calculus. She was also found to have a 3 mm left renal calculus. She was offered the options of medical expulsion therapy versus ureteroscopic removal of the calculus. She has elected to undergo the latter. Operative Findings: Left proximal ureteral calculus and left upper pole renal calculus, both fragmented and removed completely. Description of Procedure: The patient was taken to the operating room and placed in the dorsolithotomy position, with legs supported in Trent stirrups. The external genitalia was prepped and draped sterilely. The 30 lens was used to introduce the 21-Tunisian Rios cystoscopic sheath through the urethra and into the bladder under direct vision. The bladder was examined in its entirety. Both ureteral orifices were normal anatomic location and configuration, and clear urine effluxed from both. No tumors or foreign bodies were seen. The Rios semirigid ureteroscope was advanced into the bladder, and the left ureteral orifice was cannulated. The ureteroscope was advanced several centimeters, but an area of narrowing was encountered through which the ureteroscope could not be advanced. Therefore, a 0.035 inch Glidewire was passed through the ureteroscope and advanced up to the renal pelvis. The ureteroscope was removed, and an 11/13-Tunisian ureteral access catheter was passed over the wire, up to the proximal ureter. The Rios inFreeDAa flexible ureteroscope was then passed through the ureteral access catheter sheath and advanced under direct vision up to the proximal ureteral calculus. The 272 micron Holmium laser probe was passed through the ureteroscope, and lithotripsy was performed. As lithotripsy was being performed, the calculus refluxed into an upper pole calyx. Lithotripsy was continued within that calyx, primarily using a dusting mode. The calculus was dumbbell shaped, and ultimately was broken into 2 pieces which were each removed using a 1.9-Tunisian nitinol basket. The patient's known renal calculus was located within a small diverticulum in the same calyx. The mucosa had partially grown over this calculus and several tiny ones adjacent to it. The mucosa was incised, thus releasing the calculi, and the largest was removed via Stone basketing. The remaining calculi were no larger than the laser fiber tip. The ureteroscope was withdrawn under direct vision. There was no evidence of ureteral trauma. The Glidewire was passed through the ureteral access catheter sheath, which was removed. The Glidewire was then backloaded into the cystoscope, which was passed into the bladder. A 24 cm, 4.8-Tunisian double-J ureteral stent was placed over the wire. Proper stent positioning was verified fluoroscopically and endoscopically. The bladder was emptied and the cystoscope removed. The patient tolerated the procedure well and was taken to the recovery room in stable condition. [employer] Report: Procedure Acuity: Semi-Urgent Stone Size and Location: 5 x 7 mm, left proximal ureter Ureteral Dilation: No Ureteral Access Sheath Used: Yes Stone Sent for Analysis: Yes All Stones/Fragments Were Removed with a Basket: Yes Complications: No Preoperative Antibiotics Given: Yes Stent Placed: Yes If Stent Placed, Was String Left Attached: No If Stent Placed, When is it to be Removed: 1 week Discharge Medications: Toradol, tamsulosin
[2021-09-13 11:20] VITALS: RESP 16
[2021-09-13 11:50] VITALS: PULSE 82
[2021-09-13 12:12] VITALS: BP 135/75
== END 2021-09-13 12:34 | disposition home or self-care (01) ==
LOC: OR 07:26
PROVIDERS: ATTEND Urology
DX: N13.2 Hydronephrosis with renal and ureteral calculous obstruction (principal); E78.5 Hyperlipidemia, unspecified; E78.00 Pure hypercholesterolemia, unspecified; Z98.890 Other specified postprocedural states; Z98.891 History of uterine scar from previous surgery; Z90.710 Acquired absence of both cervix and uterus; Z83.3 Family history of diabetes mellitus; Z82.49 Family history of ischemic heart disease and other diseases of the circulatory system; Z79.1 Long term (current) use of non-steroidal anti-inflammatories (NSAID); Z79.899 Other long term (current) drug therapy
CPT/HCPCS: 82365; 74018; 52356; C2625; C1758; C1769; J2250; J1100; J0690; J2405; J3010; J2370; J2704; J2001

== ENCOUNTER → 2021-10-03 | Outpatient (CLI) | payer MEDICARE, OTHER ==
--- NOTE | 2021-10-03 12:42 | US ---
EXAMINATION TYPE: US pelvic complete DATE OF EXAM: 10/03/2021 COMPARISON: US 10/27/2019 CLINICAL HISTORY: 70-year-old female N83.202 ovarian cyst left side. Left ovarian cyst seen on recent CT at [facility], history of and partial hysterectomy Transabdominal sonographic images of the pelvis were acquired. FINDINGS: Date of LMP: 2004 EXAM MEASUREMENTS: Right Ovary: 1.7 x 0.9 x 1.6cm Left Ovary: 3.5 x 2.5 x 3.2cm 1. Uterus: surgically absent 2. Endometrium: surgically absent 3. Right Ovary: wnl 4. Left Ovary: 2.7 x 1.6 x 2.6cm cystic area (versus 6 mm, previously 5. Bilateral Adnexa: wnl 6. Posterior cul-de-sac: wnl IMPRESSION: 1. Status post hysterectomy. 2. Left ovary shows a 2.7 cm cyst, increased in size from 6 mm on 10/27/2019. Cystic epithelial ovarian neoplasm not excluded at this time. Consider initial assessment with a 3 month follow-up ultrasound. Subsequent annual surveillance ultrasound may be needed. If continued growth, excision may be consid ered.
== END | disposition home or self-care (01) ==
LOC: RADUSWWP 08:11
PROVIDERS: ATTEND Obstetrics & Gynecology
DX: N83.202 Unspecified ovarian cyst, left side (principal); Z90.710 Acquired absence of both cervix and uterus
CPT/HCPCS: 76856

== ENCOUNTER → 2021-10-31 | Outpatient (CLI) | payer MEDICARE, OTHER ==
--- NOTE | 2021-10-31 09:19 | XR ---
EXAMINATION TYPE: XR KUB DATE OF EXAM: 10/31/2021 COMPARISON: 09/13/2021 HISTORY: Pain TECHNIQUE: One view abdominal series FINDINGS: The osseous structures are intact. The bowel gas pattern is nonspecific. Lung bases are clear. Arth ropathy of the hips. Calcifications in the pelvis are nonspecific but stable in appearance. IMPRESSION: 1. No definite suspicious calcifications seen on today's exam. Pelvic calcifications stable from prio r exam likely vascular.
--- NOTE | 2021-10-31 09:26 | US ---
EXAMINATION TYPE: US kidneys/renal and bladder DATE OF EXAM: 10/31/2021 COMPARISON: None CLINICAL HISTORY: M13.2 HYDRONEPHROSIS w/crystal/ureteral calculus. Left ureteral stone removed in August 2021 EXAM MEASUREMENTS: Right Kidney: 10.3 x 4.0 x 5.4 cm Left Kidney: 11.2 x 4.6 x 4.6 cm Right Kidney: wnl Left Kidney: wnl Bladder: wnl Bilateral Jets seen: Yes There is no evidence for hydronephrosis at this point in time. No nephrolithiasis is seen. No edin s are identified. The urinary bladder is anechoic. Bilateral ureteral jets are seen. IMPRESSION: No sonographic evidence for nephrolithiasis. No acute process.
== END | disposition home or self-care (01) ==
LOC: RADUSWWP 08:16
PROVIDERS: ATTEND Urology
DX: R10.9 Unspecified abdominal pain (principal)
CPT/HCPCS: 74018; 76770

== ENCOUNTER → 2021-12-05 | Outpatient (CLI) | payer MEDICARE, OTHER ==
--- NOTE | 2021-12-05 09:30 | US ---
EXAMINATION TYPE: US pelvic complete DATE OF EXAM: 12/05/2021 COMPARISON: US 10/03/2021. CLINICAL HISTORY: N83.202 left ovarian cyst. Follow up left ovarian cyst TECHNIQUE: Transabdominal sonographic images of the pelvis were acquired. Date of LMP: 2004 EXAM MEASUREMENTS: Right Ovary: 1.6 x 0.9 x 1.7 cm Left Ovary: 3.9 x 2.9 x 2.8 cm 1. Uterus: surgically absent 2. Endometrium: surgically absent 3. Right Ovary: wnl 4. Left Ovary: 2.4 x 1.9 x 2.6 cm cyst 5. Bilateral Adnexa: wnl 6. Posterior cul-de-sac: wnl IMPRESSION: 1. Stable left ovarian cyst measuring up to 2.6 cm. Follow-up ultrasound in one year is recommended to assess for stability. 2. Postsurgical changes from hysterectomy.
== END | disposition home or self-care (01) ==
LOC: RADUSWWP 08:13
PROVIDERS: ATTEND Obstetrics & Gynecology
DX: N83.202 Unspecified ovarian cyst, left side (principal); Z90.710 Acquired absence of both cervix and uterus
CPT/HCPCS: 76856

== ENCOUNTER → 2021-12-18 | Outpatient (CLI) | payer MEDICARE, OTHER ==
--- NOTE | 2021-12-18 07:29 | CT ---
EXAMINATION TYPE: CT chest wo con DATE OF EXAM: 12/18/2021 COMPARISON: NONE HISTORY: Pulmonary Nodule CT DLP: 317.9 mGycm. Automated Exposure Control for Dose Reduction was Utilized. TECHNIQUE: CT scan of the thorax is performed without IV contrast. FINDINGS: LUNGS: There is peripheral 9 x 6 mm right middle lobe nodule axial image 33. Left lung is clear. No p leural effusion or pneumothorax seen bilaterally. MEDIASTINUM: Lack of IV contrast is noted to limit evaluation for mediastinal and especially hilar ad enopathy. There are no definitive greater than 1 cm mediastinal lymph nodes. No cardiomegaly or per icardial effusion is seen. [id number] coronary artery calcifications are present. OTHER: S-shaped scoliotic curvature in the thoracic spine. IMPRESSION: Confirmation of 9 x 6 mm peripheral right middle lobe nodule. Follow-up advised as per [place] eischner Society recommendations.
== END | disposition home or self-care (01) ==
LOC: RADCTMAIN 06:53
PROVIDERS: ATTEND Family Medicine
DX: R91.1 Solitary pulmonary nodule (principal)
CPT/HCPCS: 71250

== ENCOUNTER → 2022-01-31 | Outpatient (CLI) | payer MEDICARE, OTHER ==
--- NOTE | 2022-02-01 13:23 | MM ---
Reason for Exam: Screening (asymptomatic). Last mammogram was performed 1 year(s) and 1 month(s) ago. Patient History: Menarche at age 14. First Full-Term at age 36. Late child-bearing (after 30). Left ovary removed at age 69. Right ovary removed at age 69. Hysterectomy at age 69. Postmenopausal. Risk Values: Keeley 5 year model risk: 2.4%. NCI Lifetime model risk: 7.3%. Prior Study Comparison: 04/21/2017 Screening Mammogram, [facility]. 12/13/2019 Bilateral Screening Mammogram, [facility]. 12/27/2020 Bilateral Screening Mammogram, [facility]. Tissue Density: The breast tissue is heterogeneously dense. This may lower the sensitivity of mammography. Findings: Analyzed By CAD. Pattern appears stable No suspicious groups of microcalcifications, spiculated or lobular masses, architectural distortion or other secondary signs of malignancy are mammographically apparent. Overall Assessment: Benign, BI-RAD 2 Management: Screening Mammogram of both breasts in 1 year. A negative mammogram report should not preclude additional follow up of suspicious palpable abnormalities. Patient should continue monthly self breast exam. A clinical breast exam by your physician is recommended on an annual basis and results should be correlated with mammographic findings. Electronically signed and approved by: Sharad Ambriz D.O. Radiologis
== END | disposition home or self-care (01) ==
LOC: RADMAMWWP 14:54
PROVIDERS: ATTEND Obstetrics & Gynecology
DX: Z12.31 Encounter for screening mammogram for malignant neoplasm of breast (principal); Z78.0 Asymptomatic menopausal state
CPT/HCPCS: 77063; 77067

== ENCOUNTER → 2022-07-03 | Outpatient (CLI) | payer MEDICARE, OTHER ==
[2022-07-03 13:39] LABS: African American GFR (CKD) >90 (>60 ml/min/1.73 sqM); Blood Urea Nitrogen 17 mg/dL (7-17); Non-African American GFR(CKD) 90 (>60 ml/min/1.73 sqM)
--- NOTE | 2022-07-03 15:18 | CT ---
EXAMINATION TYPE: CT chest w con CT DLP: 422.9 mGycm, Automated exposure control for dose reduction was used. DATE OF EXAM: 07/03/2022 2:06 PM COMPARISON: CT chest 12/18/2021. CLINICAL INDICATION:Female, 71 years old with history of R91.1; PHH, lung nodule TECHNIQUE: Multiple axial images were obtained through the chest following the administration of 100 cc of Isovue 300. . Coronal and sagittal reformats reviewed. FINDINGS: LUNGS/ PLEURA: No pleural effusion, pneumothorax, focal consolidation. Stable pleural-based right mid dle lobe 9 x 7 mm pulmonary nodule (series 4, image 37). No new or enlarging pulmonary nodules. AIRWAY: Patent and unremarkable.. HEART: Size within normal limits. No pericardial effusion. Mild to moderate coronary calcifications a re again demonstrated. MEDIASTINUM: No gross evidence of adenopathy. VASCULATURE: No aortic aneurysm. MUSCULOSKELETAL: No acute osseous abnormalities. S-shaped scoliotic curvature of the thoracic spine. SOFT TISSUES/LYMPH NODES: Unremarkable. LOWER NECK: No significant findings. UPPER ABDOMEN: No significant findings. IMPRESSION: Stable 9 x 7 mm peripheral right middle lobe pulmonary nodule. No new or enlarging pulmonary nodules. Follow-up CT chest in 6-12 months is recommended to assess for stability. Pulmonary nodules measuring less than 6 mm. Incidentally detected nodules of this size are generally considered benign in individuals without concomitant risk factors such as smoking history or other ri sk factors for malignancy. Follow up imaging is generally not performed, in accordance with Fleischne r Society guidelines. In high-risk patients, a [address] thorax can be considered.
== END | disposition home or self-care (01) ==
LOC: RADCTMAIN 13:02
PROVIDERS: ATTEND Internal Medicine Critical Care Medicine
DX: R91.8 Other nonspecific abnormal finding of lung field (principal)
CPT/HCPCS: 82565; 84520; 71260; 36415; Q9967

== ENCOUNTER → 2023-09-30 | Outpatient (CLI) | payer MEDICARE ==
--- NOTE | 2023-10-30 14:32 | CT ---
EXAMINATION TYPE: CT chest w con CT DLP: 429 mGycm, Automated exposure control for dose reduction was used. DATE OF EXAM: 09/30/2023 COMPARISON: CT chest 07/03/2022, 12/18/2021. CLINICAL INDICATION:Female, 72 years old with history of R91.1; PHH, TECHNIQUE: Multiple axial images were obtained through the chest following the administration of 100 cc of Isovue 300. . Coronal and sagittal reformats reviewed. FINDINGS: LUNGS/ PLEURA: No pleural effusion, pneumothorax, focal consolidation. Stable pleural-based right mid dle lobe 9 x 6 mm pulmonary nodule (series 4, image 38). Previously 9 x 7 mm. No new or enlarging pul monary nodules. AIRWAY: Patent and unremarkable.. HEART: Size within normal limits. No pericardial effusion. Mild to moderate coronary artery calcifica tions are again demonstrated. MEDIASTINUM: No evidence of adenopathy. VASCULATURE: No aortic aneurysm. MUSCULOSKELETAL: No acute osseous abnormalities. S-shaped scoliotic curvature of the thoracic spine. Remote left posterior 10th rib fracture. Similar grade 1 anterolisthesis of L2 on L3. SOFT TISSUES/LYMPH NODES: Unremarkable. LOWER NECK: No significant findings. UPPER ABDOMEN: No significant findings. IMPRESSION: Stable 9 x 6 mm peripheral right middle lobe pulmonary nodule dating back to 12/18/2021. No new or enl arging pulmonary nodules. Consider follow-up CT chest in one year.
== END | disposition home or self-care (01) ==
LOC: RADCTMAIN 07:25
PROVIDERS: ATTEND Internal Medicine Critical Care Medicine
DX: R91.1 Solitary pulmonary nodule (principal); S22.32XA Fracture of one rib, left side, initial encounter for closed fracture
CPT/HCPCS: 71260; Q9967

== ENCOUNTER → 2023-12-02 | Outpatient (CLI) | payer MEDICARE ==
--- NOTE | 2023-12-02 08:04 | MM ---
Reason for Exam: Screening (asymptomatic). Last mammogram was performed 1 year(s) and 10 month(s) ago. Patient History: Menarche at age 14. First Full-Term at age 36. Late child-bearing (after 30). Left ovary removed at age 69. Right ovary removed at age 69. Hysterectomy at age 69. Postmenopausal. Risk Values: Keeley 5 year model risk: 2.4%. NCI Lifetime model risk: 6.6%. Prior Study Comparison: 12/13/2019 Bilateral Screening Mammogram, [facility]. 12/27/2020 Bilateral Screening Mammogram, [facility]. 01/31/2022 Bilateral MG 3D screening mammo w/cad, [facility]. Tissue Density: The breasts are heterogeneously dense, which may obscure small masses. Findings: Analyzed By CAD. There is no suspicious group of microcalcifications or new suspicious mass in either breast. Benign appearing calcifications. Overall Assessment: Benign, BI-RAD 2 Management: Screening Mammogram of both breasts in 1 year. . Patient should continue monthly self-breast exams. A clinical breast exam by your physician is recommended on an annual basis. This exam should not preclude additional follow-up of suspicious palpable abnormalities. Note on Keeley scores and lifetime risk: 1. A Keeley score greater than 3% is considered moderate risk. If this is the case, consider specialist referral to assess eligibility for a risk reducing agent. 2. If overall lifetime risk for the development of breast cancer is 20% or higher, the patient may qualify for future screening with alternating mammogram and breast MRI. [facility], , 12/02/2023 8:02 AM. Electronically signed and approved by: Crow Cornelius M.D. Radiologis
--- NOTE | 2023-12-03 08:14 | BD ---
EXAMINATION TYPE: Axial Bone Density DATE OF EXAM: 12/02/2023 CLINICAL HISTORY: 73 years old Female. ICD-10 CODE: Z78.0 POST MENOPAUSAL WITHOUT HRT Height: 60 Weight: 170 FRAX RISK QUESTIONS: History of Fracture in Adulthood: yes Secondary Osteoporosis: no RISK FACTORS HISTORY OF: History of left Wrist Fracture: yes When: at 52 Surgery to Spine/Hip(right/left)/Wrist (right/left): no MEDICATIONS: Thyroid Medications: no Osteoporosis Medications: no EXAM MEASUREMENTS: Bone mineral densitometry was performed using the [employer] System. Bone mineral density as measured about the Lumbar spine is: ----- L1-L4(G/cm2): 0.941 T Score Values are as follows: ----- L1: -2.5 ----- L2: -2.3 ----- L3: -1.5 ----- L4: -1.8 ----- L1-L4: -2.0 Z Score Values are as follows: ----- L1: -1.2 ----- L2: -1.0 ----- L3: -0.2 ----- L4: -0.6 ----- L1-L4: -0.7 Bone mineral density has: Decreased -8.1% since study of: 12/16/2019 Bone mineral density about the R hip (g/cm2): 0.840 Bone mineral density about the L hip (g/cm2): 0.810 T Score values are as follows: -----R Neck: -2.2 -----L Neck: -2.1 -----R Total: -1.3 -----L Total: -1.6 Z Score values are as follows: -----R Neck: -0.8 -----L Neck: -0.6 -----R Total: 0.1 -----L Total: -0.3 Bone mineral density has: Decreased -6.7% since study of: 12/16/2019 FRAX%s: The graph provided illustrates a 19.9% chance for a major osteoporotic fx and a 4.4% chance f or the hips probability for fx in 10 years time. IMPRESSION: Osteoporosis (T Score less than -2.5). There is increased fracture risk and therapy is usually indicated based on age. Re-Screen 1-2 years. NOTE: T-SCORE=SD OF THE YOUNG ADULT MEAN. [facility], , 12/03/2023 8:11 AM
== END | disposition home or self-care (01) ==
LOC: RADMAMWWP 07:24
PROVIDERS: ATTEND Family Medicine
CPT/HCPCS: 77063; 77067; 77080